=== PATIENT | female | born 1950 | race Caucasian/White ===

== ENCOUNTER → 2020-03-05 15:08 | Outpatient (BNVA) | payer MEDICARE, OTHER, SELFPAY | PROVIDERS: Family Provider Internal Medicine; Visit Provider Nurse Practitioner Family | DX: Z20.828 Contact with and (suspected) exposure to other viral communicable diseases (principal); J06.9 Acute upper respiratory infection, unspecified | CPT/HCPCS: 87635 ==

== ENCOUNTER → 2020-05-12 18:07 | Outpatient (BNVA) | payer MEDICARE, OTHER, SELFPAY | PROVIDERS: Family Provider Internal Medicine; Visit Provider Nurse Practitioner | DX: S52.132A Displaced fracture of neck of left radius, initial encounter for closed fracture (principal); W19.XXXA Unspecified fall, initial encounter; M25.522 Pain in left elbow | CPT/HCPCS: 73080; 73090 ==

== ENCOUNTER → 2020-05-29 16:01 | Outpatient (BNVA) | payer MEDICARE, OTHER, SELFPAY | PROVIDERS: Family Provider Internal Medicine; PCP Internal Medicine; Visit Provider Orthopaedic Surgery | DX: S52.122D Displaced fracture of head of left radius, subsequent encounter for closed fracture with routine healing (principal); M65.312 Trigger thumb, left thumb; W01.0XXD Fall on same level from slipping, tripping and stumbling without subsequent striking against object, subsequent encounter | CPT/HCPCS: 73080 ==

== ENCOUNTER → 2020-06-19 14:10 | Outpatient (BNVA) | payer MEDICARE, OTHER, SELFPAY | PROVIDERS: Family Provider Internal Medicine; PCP Internal Medicine; Visit Provider Orthopaedic Surgery | DX: S52.122D Displaced fracture of head of left radius, subsequent encounter for closed fracture with routine healing (principal); X58.XXXD Exposure to other specified factors, subsequent encounter | CPT/HCPCS: 73080 ==

== ENCOUNTER → 2020-07-17 14:00 | Outpatient (BNVA) | payer MEDICARE, OTHER, SELFPAY | PROVIDERS: Family Provider Internal Medicine; PCP Internal Medicine; Visit Provider Orthopaedic Surgery | DX: S52.122A Displaced fracture of head of left radius, initial encounter for closed fracture (principal); W01.0XXA Fall on same level from slipping, tripping and stumbling without subsequent striking against object, initial encounter; M65.312 Trigger thumb, left thumb; Z01.812 Encounter for preprocedural laboratory examination; Z20.822 Contact with and (suspected) exposure to COVID-19 | CPT/HCPCS: 73080 ==

== ENCOUNTER → 2020-07-23 15:08 | Outpatient (BNVA) | payer MEDICARE, OTHER, SELFPAY | PROVIDERS: Family Provider Internal Medicine; PCP Internal Medicine; Visit Provider Orthopaedic Surgery | DX: Z01.812 Encounter for preprocedural laboratory examination (principal); Z20.822 Contact with and (suspected) exposure to COVID-19 | CPT/HCPCS: 87635 ==

== ENCOUNTER 2020-07-26 11:38 | Day surgery (SDC) | payer MEDICARE, OTHER, SELFPAY ==
[2020-07-25 14:09] VITALS: BMI 37.9
[2020-07-26] VITALS (9 sets, daily range): BP systolic 141–176; BP diastolic 86–125; PULSE 76–96; RESP 16–18; TEMP 36.2–36.9; O2SAT 92–98
[2020-07-26] MEDS: sodium chloride 0.9% 1,000 ML 30 ML IV (12:00)
--- NOTE | 2020-07-26 12:50 | ANES.PREANE2 ---
Pre-Anesthetic Assessment Pre-Anesthetic Assessment: Height/Weight: Height 1.65 m Weight 103.419 kg Temp Pulse Resp BP Pulse Ox 97.2 F L 96 18 152/125 98 07/26/20 11:57 07/26/20 11:57 07/26/20 11:57 07/26/20 11:57 07/26/20 11:57 Preop Diagnosis: Trigger finger Left thumb Proposed Procedure: Operation Date: 07/26/20 13:05 Proposed Procedures p left thumb trigger finger release 48164 s52.122A(Left) - Mike To MD Familial anesthetic complications: none Was Beta Tomeka taken within 24 hours: N/A Was Clonidine taken within 24 hours: N/A Last intake: Intake Last Liquid Date 07/25/20 Last Liquid Time 23:30 Last Solid Date 07/24/20 Last Solid Time 23:30 Social: Social History: No alcohol and No tobacco Exam: Pre-Anes Outpt Exam: alert, oriented x 3, clear to auscultation bilaterally and regular rate & rhythm Airway: Cervical ROM: WNL MP: 4 Dentition: Full CV/HEM: CV/HEM: HTN Anesthetic Plan: ASA status: 2 Anesthesia: MAC and Regional (specify below) (margie block) Risk of > 500 ml blood loss (7ml/kg in children): No PFSH Anesthesia PFSH: Social History Smoking and tobacco status: never smoked Data Anesthesia Cardiac Studies: No Data to Display
--- NOTE | 2020-07-26 14:24 | W.PM.OPSUD ---
Surgery/Procedure H&P Update DATE OF PROCEDURE: July 26, 2020 DATE H&P PERFORMED: 07/17/20 PREOP DIAGNOSIS: Trigger finger Left thumb PLANNED PROCEDURE: Operation Date: 07/26/20 13:05 Proposed Procedures p left thumb trigger finger release 16925 s52.122A(Left) - Mike To MD
--- NOTE | 2020-07-26 15:04 | PM.OP ---
Operative Report Date of procedure: July 26, 2020 Pre-op Diagnosis: Trigger finger Left thumb Post-op diagnosis: same Post-op Findings: Same same Procedure Done: Left trigger thumb release Surgeon: Mike To Anesthesia: Nerve Block (Naga block) Estimated blood loss (mL): 2 Tourniquet time (min): 21 Findings: No abnormalities were seen in the Lexer tendons at the level of the A1 acosta Disposition: PACU Procedure: The patient's hand was prepped in the usual fashion. A timeout was performed. I transverse incision was made over the level of a 1 acosta in the palm over a distance of approximately a centimeter and a half. Under loupe magnification blunt dissection was accomplished down to the A1 acosta. With adequate visualization a scalpel was used to divide the central 8 mm of that structure. Blunt scissors were then used to extend the release approximately 5 mm proximally and 5 mm distally. Tendons were pulled the road and inspected to assure there health. Skin edges were infiltrated with 4 cc of 0.5%n Marcaine. The skin edges were closed with 3-0 Prolene compressive dressings were applied.
--- NOTE | 2020-07-26 15:24 | ANE.PACU2 ---
Inpatient post-anesthesia follow up: Airway intact: Yes Vital signs: Temperature 98.4 F Pulse Rate 81 Respiratory Rate 18 Blood Pressure 162/88 Pulse Oximetry 93 Oxygen Delivery Me thod Room Air Oxygen Flow Rate Fraction of Inspir ed Oxygen Hydration adequate: Yes Nausea and vomiting: No Pain level: 2 Mental status: Baseline
[2020-07-26] MEDS: oxyCODONE 5 mg IR Tab/Cap PO (15:48)
== END 2020-07-26 16:00 | disposition home or self-care (01) ==
PROVIDERS: PCP Internal Medicine; Visit Provider Orthopaedic Surgery
PROC: (CPT 26055; principal; 2020-07-26 12:55)
DX: M65.312 Trigger thumb, left thumb (principal); I10 Essential (primary) hypertension
CPT/HCPCS: 26055; 96365; J0690; J2250; J2405; J2704; J3010; J3490; J7030

== ENCOUNTER → 2021-01-08 17:32 | Outpatient (BNVA) | payer MEDICARE, OTHER, SELFPAY | PROVIDERS: PCP Internal Medicine; Visit Provider Nurse Practitioner Family | DX: Z20.822 Contact with and (suspected) exposure to COVID-19 (principal); J32.9 Chronic sinusitis, unspecified | CPT/HCPCS: 87635 ==

== ENCOUNTER → 2021-08-27 17:21 | Outpatient (BNVA) | payer MEDICARE, OTHER, SELFPAY | PROVIDERS: PCP Internal Medicine; Visit Provider Nurse Practitioner Family | DX: J32.9 Chronic sinusitis, unspecified (principal); J06.9 Acute upper respiratory infection, unspecified; R05.9 Cough, unspecified; J30.2 Other seasonal allergic rhinitis; Z20.822 Contact with and (suspected) exposure to COVID-19 | CPT/HCPCS: 80053; 87635 ==

== ENCOUNTER → 2021-09-06 10:43 | Outpatient (BNVA) | payer MEDICARE, OTHER, SELFPAY | PROVIDERS: PCP Internal Medicine; Visit Provider Nurse Practitioner Family | DX: J06.9 Acute upper respiratory infection, unspecified (principal); J40 Bronchitis, not specified as acute or chronic; R05.9 Cough, unspecified | CPT/HCPCS: 71046 ==

== ENCOUNTER 2024-04-19 21:40 | Emergency (ER) | payer MEDICARE, OTHER, SELFPAY ==
[2024-04-19] VITALS (7 sets, daily range): BP systolic 109–143; BP diastolic 55–95; PULSE 112–115; RESP 22–37; TEMP 36.3; O2SAT 93–97
--- NOTE | 2024-04-19 21:49 | ECG_ITS ---
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 Measurements Intervals [place] Rate: 112 P: 71 MO: 160 QRS: 5 QRSD: 82 T: 29 QT: 291 QTc: 398 Interpretive Statements SINUS TACHYCARDIA LOW QRS VOLTAGE IN PRECORDIAL LEADS [QRS DEFLECTION < 1.0 mV IN CHEST LEADS] POSSIBLE ANTERIOR MYOCARDIAL INFARCTION , OF INDETERMINATE AGE [30 ms Q WAVE IN V3/V4, OR R < 0.2 mV IN V4] POSSIBLE INFERIOR MYOCARDIAL INFARCTION , PROBABLY OLD [30 ms Q WAVE IN II/aVF] Compared to ECG 05/29/2017 22:55:57 Low QRS voltage now present Myocardial infarct finding now present Sinus rhythm no longer present T-wave abnormality no longer present Electronically Signed On 04-23-2024 23:35:17 BEAM MACHINE OPERATOR by Bob Escobar M.D. [id number]
--- NOTE | 2024-04-19 21:50 | XRR_ITS ---
PROCEDURE INFORMATION: Exam: XR Chest Exam date and time: 04/19/2024 9:53 PM Age: 73 years old Clinical indication: Other: Weakness TECHNIQUE: Imaging protocol: Radiologic exam of the chest. Views: 1 view. COMPARISON: CR XR chest 2V* [id number] 09/06/2021 10:48 AM FINDINGS: Lungs: Unremarkable. No consolidation. Expiratory. Pleural spaces: Unremarkable. No pleural effusion. No pneumothorax. Heart/Mediastinum: Heart borderline in size. Bones/joints: Unremarkable. XR/XR chest 1V portable [id number] IMPRESSION: No acute findings.
--- NOTE | 2024-04-19 21:50 | CTR_ITS ---
PROCEDURE INFORMATION: Exam: CT Head Without Contrast Exam date and time: 04/19/2024 10:05 PM Age: 73 years old Clinical indication: Injury or trauma; Concussion/head injury; Injury details: Fall loc; Additional info: Fall, head injury TECHNIQUE: Imaging protocol: Computed tomography of the head without contrast. Radiation optimization: All CT scans at this facility use at least one of these dose optimization techniques: automated exposure control; mA and/or kV adjustment per patient size (includes targeted exams where dose is matched to clinical indication); or iterative reconstruction. COMPARISON: MRI Neck/Face/Orbit w/wo [id number] 01/28/2019 8:46 AM RADIATION DOSE METRICS: Total DLP (mGy-cm): 1147.78 FINDINGS: Brain: Normal. No hemorrhage. Unremarkable white matter. No mass effect. Cerebral ventricles: No ventriculomegaly. Paranasal sinuses: Visualized sinuses are unremarkable. No fluid levels. Mastoid air cells: Visualized mastoid air cells are well aerated. Bones: Unremarkable. No acute fracture. Soft tissues: Unremarkable. CT/CT head wo con* [id number] IMPRESSION: No acute intracranial abnormality.
--- NOTE | 2024-04-19 22:16 | ED_ITS ---
HPI - Dizziness 2 General: Chief Complaint: Dizziness Stated Complaint: dizzy, fall Time Seen by Provider: 04/19/24 21:47 History of Present Illness: HPI Narrative: 73-year-old female with a history of hyp ertension who presents to the emergency room after having had a syncopal episode.She says she felt dizzy and then passed out. She said she woke up panting . At this point she does not feel short of breath. No known fevers. She says she had a mammogram and a bone density study earlier today. She has had no known fevers. No leg or calf pain. No lower extremity swelling. She says she feels somewhat short of breath still but she is not panting like she was. EMS reports mild hypoxemia on presentation. Here she is satting in the upper 90s on 3 L nasal cannula. She is slightly tachycardic. Labile blood pressures. Related Data Home Medications Medication Instructions Recorded Confirmed lisinopril 10 mg tablet 10 mg PO DAILY 06/19/20 09/06/21 phenylephrine HCl 10 mg tablet 10 mg PO Q6H 08/27/21 09/06/21 (Sudafed PE) gabapentin 100 mg capsule 100 mg PO BID 05/01/22 05/01/22 nortriptyline 25 mg capsule 25 mg PO DAILY 05/01/22 05/01/22 sertraline 100 mg tablet 100 mg PO DAILY 05/01/22 05/01/22 Previous Rx's Medication Instructions Recorded levocetirizine 5 mg tablet (Xyzal) 5 mg PO DAILY #90 tabs 08/27/21 albuterol sulfate 90 mcg/actuation 2 puff inhalation QID PRN 09/06/21 aerosol inhaler (ProAir HFA) shortness of breath or wheezing #8.5 grams budesonide-formoterol HFA 160 2 puff inhalation Q12H #10.2 grams 09/06/21 mcg-4.5 mcg/actuation aerosol inhaler (Symbicort) levofloxacin 750 mg tablet 750 mg PO DAILY 5 days #5 tabs 05/01/22 promethazine-DM 6.25 mg-15 mg/5 mL 5 ml PO Q6H PRN cough #160 mL 05/01/22 oral syrup Allergies Allergy/AdvReac Type Severity Reaction Status Date / Time acetaminophen [From [place]] Allergy hives Verified 04/19/24 21:58 hydrocodone [From [place]] Allergy hives Verified 04/19/24 21:58 Penicillins Allergy rash Verified 04/19/24 21:58 Review of Systems 2 Narrative: Constitutional symptoms: Negative except as documented in HPI. Skin symptoms: Negative except as documented in HPI. Eye symptoms: Negative except as documented in HPI. ENMT symptoms: Negative except as documented in HPI. Respiratory symptoms: Negative except as documented in HPI. Cardiovascular symptoms: Negative except as documented in HPI. Gastrointestinal symptoms: Negative except as documented in HPI. Genitourinary symptoms: Negative except as documented in HPI. Musculoskeletal symptoms: Negative except as documented in HPI. Neurologic symptoms: Negative except as documented in HPI. Psychiatric symptoms: Negative except as documented in HPI. Endocrine symptoms: Negative except as documented in HPI. . PFSH ED 2 PFSH: Social History Smoking and tobacco/nicotine status: never used tobacco/nicotine Physical Exam 2 Narrative: EXAM NARRATIVE: General: Alert, no acute distress. Skin: Warm, dry. Head: Normocephalic, atraumatic. Neck: Supple, trachea midline. Eye: Extraocular movements are intact. Ears, nose, mouth and throat: mucosa moist. Cardiovascular: Regular, tachycardic, normal peripheral perfusion. Respiratory: Lungs are clear to auscultation, respirations are non-labored, breath sounds are equal, Symmetrical chest wall expansion. Gastrointestinal: Soft, Nontender, Non distended Musculoskeletal: Normal ROM, no deformity. Neurological: Alert and oriented, No focal neurological deficit observed. Psychiatric: Cooperative, appropriate mood & affect. Course 2 Vital Signs: Vital signs: Vital Signs Temperature 97.4 F L 04/19/24 21:54 Pulse Rate 112 H 04/19/24 21:54 Respiratory Rate 22 H 04/19/24 21:54 Blood Pressure 109/55 04/19/24 21:54 Pulse Oximetry 97 04/19/24 21:54 Oxygen Delivery Me thod Nasal Cannula 04/19/24 21:54 Oxygen Flow Rate 3 04/19/24 21:54 MDM - Dizziness Medical Decision Making Medical decision making: Differential diagnosis including but not limited to and based on the above HPI, review of systems and physical exam in this patient with syncope: Vasovagal, orthostatics hypotension, cardiac dysrhythmia, myocardial infarction, infection and hypotension, Orders placed to evaluate differential diagnosis based on the above differential, HPI and physical exam EKG: Time 2148. Rate 112. Sinus tachycardia, No ST-T changes, no ectopy, normal MO & QRS intervals, This was reviewed and interpreted by myself the ER physician at 2154 CT head: No acute intracranial process. no intracranial hemorrhage, no evidence of infarct. no evidence of acute fracture.This was reviewed and interpreted by myself the ER physician. Chest x-ray: No acute process. No infiltrate. No pneumothorax. This was reviewed and interpreted by myself the emergency room physician. I also reviewed the radiology report. Lab Review: Laboratory results were reviewed and interpreted by myself the emergency room physician. No leukocytosis. No anemia. Platelets are slightly low at 124. BUN and creatinine are relatively normal at 22 and 0.9. Slight elevation in her liver enzymes. proBNP is quite elevated and she has no history of congestive heart failure and her heart size is normal on chest x-ray. This is all very suspicious of PE. CTA was ordered. CTA of the chest with PE protocol: Saddle pulmonary emboli with heavy bilateral burden. Effacement of the left ventricle. Right heart strain. This was reviewed and interpreted by myself the emergency room physician. I also reviewed the radiology report. I also spoke with the radiologist on-call about this. He was quite concerned. I reviewed the patient's medical record. Reexamination: Patient still slightly tachycardic. Heart rate around 115. Currently mild tachypnea but no real increased work of breathing. Still some minimal oxygen requirements. Overall she does not appear in as much distress as her CTA might indicate she could be. Patient requires transfer to a tertiary care center for possible embolectomy. She has severe right heart strain and effacement of the left ventricle. This requires emergent intervention likely. Patient has been accepted to [facility] in [place]. Assessment and plan: Saddle pulmonary embolism Cor pulmonale Syncope Hypoxemia ?Heparin bolus and heparin drip. Coags been ordered. -I discussed the patient with the hospitalist on-call who is admitting the patient. - Discussed findings and plan with patient. Answered any questions. - All laboratory values were reviewed and interpreted personally by myself, the ER physician - All imaging was reviewed and interpreted personally by myself, the ER physician. - Evaluation and treatment of this problem were appropriate in the emergency setting Critical care -I spent a total of >35 minutes of critical care time managing the patient, independent of any other practitioner. -The time involved in the performance of separately reportable procedures was not counted towards critical care time. Lab Data 04/19/24 22:18 04/19/24 22:18 Radiology Impressions Chest X-Ray 04/19/24 21:50 IMPRESSION: No acute findings. Head CT 04/19/24 21:50 IMPRESSION: No acute intracranial abnormality. Chest CTA 04/20/24 00:00 IMPRESSION: Acute pulmonary embolism with large clot burden and severe effacement of the left ventricle. Findings called to Dr. Loco 11:22 p.m. flushing Standard time. Laboratory Results WBC 8.56 10^3/uL (3.29-11.43) 04/19/24 22:18 RBC 4.30 10^6/uL (3.85-5.65) 04/19/24 22:18 Hgb 12.60 g/dL (11.27-16.99) 04/19/24 22:18 Hct 39.3 % (36-47) 04/19/24 22:18 MCV 91.4 fl (85-98) 04/19/24 22:18 MCH 29.3 pg (27-33) 04/19/24 22:18 MCHC 32.1 g/dL (30-55) 04/19/24 22:18 RDW 13.7 % (12.1-15.1) 04/19/24 22:18 Plt Count 124 10^3/cmm (157-399) L 04/19/24 22:18 MPV 10.1 fL (7.4-10.4) 04/19/24 22:18 Neut % (Auto) 79.6 % 04/19/24 22:18 Lymph % (Auto) 14.3 % 04/19/24 22:18 [place] % (Auto) 4.8 % 04/19/24 22:18 Eos % (Auto) 0.4 % 04/19/24 22:18 Baso % (Auto) 0.4 % 04/19/24 22:18 Neut # (Auto) 6.83 10^3/uL (1.8-7.7) 04/19/24 22:18 Lymph # (Auto) 1.2 10^3/uL (0.8-4.8) 04/19/24 22:18 [place] # (Auto) 0.4 10^3/uL (0.2-0.9) 04/19/24 22:18 Eos # (Auto) 0.0 10^3/uL (0.0-0.8) 04/19/24 22:18 Baso # (Auto) 0.0 10^3/uL (0.0-0.1) 04/19/24 22:18 Nucleated RBC % (auto) 0 % 04/19/24 22: Nucleated RBCs # 0.0 /100WBC 04/19/24 22:18 Specimen Type Arterial 04/19/24: Sample Site Brachial, right 04/19/24: ABG pH 7.46 (7.35-7.45) H 04/19/24: ABG pCO2 33.9 mmHg (35-45) L 04/19/24: ABG pO2 79.7 mmHg (80.0-100.0) L 04/19/24: ABG HCO3 24.1 mmol/L (22-26) 04/19/24: ABG O2 Saturation 96.1 04/19/24: ABG Base Excess 0.8 mmol/L (-2.0-2.0) 04/19/24 22: Reed Test N/a 04/19/24: A-a O2 Gradient 3.8 mmHg (5-10) L 04/19/24: Hematocrit 41.1 % (37-47) 04/19/24: Hgb O2 Saturation 94.4 % (95-100) L 04/19/24: Carboxyhemoglobin 0.7 %THgb (0.4-20.1) 04/19/24: Methemoglobin 1.0 % (0.4-1.5) 04/19/24: Total Hemoglobin 13.4 g/dL (12-16) 04/19/24: Sodium 141.0 mmol/L (131-143) 04/19/24: Potassium 4.1 mmol/L (3.5-5.0) 01/21/25 22:28 Glucose 133.0 mg/dL (70-115) H 04/19/24 22:28 Ionized Calcium 1.2 mmol/L (1.1-1.4) 04/19/24 22:28 O2 Delivery Device Nc 04/19/24 22:28 O2 Liters/Min 4.0 % 04/19/24 22:28 Traffic Recorder ID [email or web address] 04/19/24 22:28 Sodium 140 mmol/L (136-145) 04/19/24 22:18 Potassium 4.3 mmol/L (3.5-5.1) 04/19/24 22:18 Chloride 103 mmol/L (98-107) 04/19/24 22:18 Carbon Dioxide 26 mmol/L (22-29) 04/19/24 22:18 Anion Gap 15.3 (5-19) 04/19/24 22:18 BUN 22 mg/dL (8-23) 04/19/24 22:18 Creatinine 0.9 mg/dL (0.5-0.9) 04/19/24 22:18 GFR Calculation Not Reportable 04/19/24 22:18 Glucose 131 mg/dL (65-115) H 04/19/24 22:18 Calculated Osmolality 295 mOsm/kg (285-295) 04/19/24 22:18 Lactic Acid 1.7 mmol/L (0.5-2.2) 04/19/24 22:18 Calcium 8.8 mg/dL (8.5-10.5) 04/19/24 22:18 Total Bilirubin 0.5 mg/dL (0.15-1.2) 04/19/24 22:18 AST 70 U/L (0-32) H 04/19/24 22:18 ALT 77 U/L (0-33) H 04/19/24 22:18 Alkaline Phosphatase 83 U/L (35-105) 04/19/24 22:18 Troponin T Baseline 73 ng/L (0-10) H 04/19/24 22:18 C-Reactive Protein 36.4 mg/L (0.0-4.9) H 04/19/24 22:18 NT-Pro-B Natriuret Pep 2531 pg/mL (0-125) H 04/19/24 22:18 Total Protein 5.8 g/dL (6.6-8.7) L 04/19/24 22:18 Albumin 3.7 g/dL (3.5-5.2) 04/19/24 22:18 Globulin 2.1 g/dL (1.3-4.6) 04/19/24 22:18 Urine Color Yellow (Yellow) 04/19/24 22:55 Urine Appearance Clear (CLEAR) 04/19/24 22: Urine pH 6.0 (5-7) 04/19/24 22:55 Ur Specific [place] 1.006 (1.005-1.030) 04/19/24 22:55 Urine Protein Negative (Negative) 04/19/24 22:55 Urine Glucose (UA) Negative (Normal) 04/19/24 22: Urine Ketones Negative (Negative) 04/19/24 22: Urine Blood Negative (Negative) 04/19/24 22: Urine Nitrate Negative (Negative) 04/19/24 22:55 Urine Bilirubin Negative (Negative) 04/19/24 22: Urine Urobilinogen 0.2 mg/dL (Negative) 04/19/24 22:55 Ur Leukocyte Esterase Negative (Negative) 04/19/24 22:55 Urine RBC 0-2 /hpf (0-2) 04/19/24 22:55 Urine WBC 0-5 /hpf (0-5) 04/19/24 22:55 Ur Squamous Epith Cells 0-5 /hpf (0-5) 04/19/24 22:55 Amorphous Sediment Not Reportable 04/19/24 22:55 Urine Bacteria None seen /hpf (NONE) 04/19/24 22:55 Hyaline Casts 0.40 /lpf 04/19/24 22:55 Adenovirus (PCR) Not detected (NOT DETECT) 04/19/24 22: C. pneumoniae DNA (PCR) Not detected (NOT DETECT) 04/19/24 22:21 Coronavirus 229E (PCR) Not detected (NOT DETECT) 04/19/24 22: Human Metapneumovir PCR Not detected (NOT DETECT) 04/19/24 22:21 Influenza A (H1) PCR Not detected (NOT DETECT) 04/19/24 22:21 Influ A (H1/09) PCR Not detected (NOT DETECT) 04/19/24 22: Influenza A (H3) PCR Not detected (NOT DETECT) 04/19/24 22:21 Influenza Type A (PCR) Not detected (NOT DETECT) 04/19/24 22:21 Influenza Type B (PCR) Not detected (NOT DETECT) 04/19/24 22:21 M. pneumoniae (PCR) Not detected (NOT DETECT) 04/19/24 22:21 Parainfluenza 1 (PCR) Not detected (NOT DETECT) 04/19/24 22:21 Parainfluenza 2 (PCR) Not detected (NOT DETECT) 04/19/24 22:21 Parainfluenza 3 (PCR) Not detected (NOT DETECT) 04/19/24 22:21 Parainfluenza 4 (PCR) Not detected (NOT DETECT) 04/19/24 22:21 RSV Type A (PCR) Not detected (NOT DETECT) 04/19/24 22:21 RSV Type B (PCR) Not detected (NOT DETECT) 04/19/24 22:21 Entero/Rhino (PCR) Not detected (NOT DETECT) 04/19/24 22:21 SARS-CoV-2 (PCR) Not detected (NOT DETECT) 04/19/24 22:21 All radiology interpretation(s) finalized by discharge Discharge Plan Discharge Patient Disposition: Xfer Short-Term Hosp Clinical Impression: Pulmonary embolism, Acute cor pulmonale due to saddle embolus of pulmonary artery, Syncope, Hypoxemia Condition: Stable Referrals: Ashley Mendes MD [Primary Care Provider] - Coding Level of Care Code ED Mold Carrier for Jonas Jones
[2024-04-19 22:39] LABS: ABG PCO2 33.9 mmHg (35-45); ABG PH Result 7.46 (7.35-7.45); Alveolar-Arterial Oxygen Gradi 3.8 mmHg (5-10); Arterial Blood Gas Hematocrit 41.1 % (37-47); Base Excess ABG 0.8 mmol/L (-2.0-2.0); Blood Gas Sample Site Brachial, right; Blood Gas Sample Type Arterial; Carboxyhemoglobin 0.7 %THgb (0.4-20.1); HCO3 ABG 24.1 mmol/L (22-26); HGB O2 Sat 94.4 % (95-100); Ionized Calcium Level - ABG 1.2 mmol/L (1.1-1.4); Oxygen Device NC; Oxygen Saturation ABG 96.1; PO2 ABG 79.7 mmHg (80.0-100.0); Potassium Level - ABG 4.1 mmol/L (3.5-5.0); Total Hemoglobin 13.4 g/dL (12-16)
[2024-04-19 22:42] LABS: Basophils % 0.4 %; Eosinophils % 0.4 %; Hematocrit 39.3 % (36-47); Lymphocytes # 1.2 10^3/uL (0.8-4.8); Lymphocytes % 14.3 %; Mean Corpuscular HGB Conc 32.1 g/dL (30-55); Mean Corpuscular Hemoglobin 29.3 pg (27-33); Mean Corpuscular Volume 91.4 fl (85-98); Mean Platelet Volume 10.1 fL (7.4-10.4); Monocytes # 0.4 10^3/uL (0.2-0.9); Monocytes % 4.8 %; Neutrophils # 6.83 10^3/uL (1.8-7.7); Neutrophils % 79.6 %; Nucleated Red Blood Cells % 0 %; Platelet Count 124 10^3/cmm (157-399); Red Cell Distribution Width 13.7 % (12.1-15.1); White Blood Count 8.56 10^3/uL (3.29-11.43)
[2024-04-19 22:54] LABS: Lactic Sepsis W/Reflex 1.7 mmol/L (0.5-2.2)
[2024-04-19 22:55] LABS: Troponin(5th) Baseline 73 ng/L (0-10)
[2024-04-19 23:03] LABS: Bilirubin Urine Negative (Negative); Blood Urine Negative (Negative); Glucose Urine UA Negative (Normal); Ketones Urine Negative (Negative); Leukocyte Esterase Urine Negative (Negative); Nitrate Urine Negative (Negative); Protein Urine Negative (Negative); Specific Gravity, Urine 1.006 (1.005-1.030); Urine Appearance Clear (CLEAR); Urine Color Yellow (Yellow); Urobilinogen Urine 0.2 mg/dL (Negative)
[2024-04-19 23:05] LABS: Alanine Aminotransferase 77 U/L (0-33); Albumin Level 3.7 g/dL (3.5-5.2); Alkaline Phosphatase 83 U/L (35-105); Anion Gap 15.3 (5-19); Aspartate Amino Transferase 70 U/L (0-32); Blood Urea Nitrogen 22 mg/dL (8-23); C Reactive Protein 36.4 mg/L (0.0-4.9); Calcium 8.8 mg/dL (8.5-10.5); Carbon Dioxide 26 mmol/L (22-29); Chloride 103 mmol/L (98-107); Globulin 2.1 g/dL (1.3-4.6); Glucose 131 mg/dL (65-115); NT Pro B Type Natriuretic Pept 2531 pg/mL (0-125); Osmolality Calculated 295 mOsm/kg (285-295); Potassium 4.3 mmol/L (3.5-5.1); Sodium 140 mmol/L (136-145); Total Bilirubin 0.5 mg/dL (0.15-1.2); Total Protein 5.8 g/dL (6.6-8.7)
[2024-04-19 23:06] LABS: Bacteria Urine None Seen /hpf; RBC Urine 0-2 /hpf (0-2); Squamous Epithelial Cell Urine 0-5 /hpf (0-5); WBC Urine 0-5 /hpf (0-5)
--- NOTE | 2024-04-19 23:08 | ECG_ITS ---
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 Measurements Intervals [place] Rate: 112 P: 64 IN: 159 QRS: 0 QRSD: 89 T: 26 QT: 318 QTc: 435 Interpretive Statements SINUS TACHYCARDIA LOW QRS VOLTAGE IN PRECORDIAL LEADS [QRS DEFLECTION < 1.0 mV IN CHEST LEADS] PROBABLE INFERIOR MYOCARDIAL INFARCTION , PROBABLY OLD [35 ms Q WAVE IN II/aVF] Compared to ECG 05/29/2017 22:55:57 Low QRS voltage now present Myocardial infarct finding now present Sinus rhythm no longer present T-wave abnormality no longer present Electronically Signed On 04-23-2024 23:15:54 DIAGNOSTICS TECH by Bob Escobar M.D. [email or web address]
[2024-04-19] MEDS: sodium chloride 0.9% 1,000 ML 999 ML IV (23:14)
[2024-04-20] VITALS (10 sets, daily range): BP systolic 135–159; BP diastolic 90–117; PULSE 103–115; RESP 21–39; O2SAT 93–97
--- NOTE | 2024-04-20 | CTR_ITS ---
PROCEDURE INFORMATION: Exam: CTA Chest With Contrast Exam date and time: 04/20/2024 12:03 AM Age: 73 years old Clinical indication: Dyspnea; Additional info: Hypoxemia, tachycardia TECHNIQUE: Imaging protocol: Computed tomographic angiography of the chest with contrast. Exam focused on the arteries. 3D rendering (Not supervised by radiologist): MIP and/or 3D reconstructed images were created by the technologist. Radiation optimization: All CT scans at this facility use at least one of these dose optimization techniques: automated exposure control; mA and/or kV adjustment per patient size (includes targeted exams where dose is matched to clinical indication); or iterative reconstruction. Contrast material: OMNI 350; Contrast volume: 100 ml; Contrast route: INTRAVENOUS (IV); COMPARISON: CR (CHEST, ) 04/19/2024 9:53 PM RADIATION DOSE METRICS: Total DLP (mGy-cm): 462.91 FINDINGS: Pulmonary arteries: Extensive bilateral pulmonary embolism with emboli in the bilateral main pulmonary arteries as well as saddle embolus. There is severe attenuation of the left ventricle. Heart RV/LV ratio: 2.9. Tiny foci of ground-glass opacity right lung base which could represent a small focus of pulmonary infarction. Aorta: Unremarkable. No aortic aneurysm. No aortic dissection. Pleural spaces: Unremarkable. No pneumothorax. No pleural effusion. Lymph nodes: Unremarkable. No enlarged lymph nodes. Bones/joints: Unremarkable. No acute fracture. Soft tissues: Unremarkable. CT/CT angio chest PE protcl [id number] IMPRESSION: Acute pulmonary embolism with large clot burden and severe effacement of the left ventricle. Findings called to Dr. Loco 11:22 p.m. ferdinand Standard time.
[2024-04-20] MEDS: iohexol 350 mg/mL 500 mL Btl (per mL) IV (00:05)
[2024-04-20 00:26] LABS: Adenovirus Not Detected (NOT DETECT); Chlamydia Pneumoniae Not Detected (NOT DETECT); Coronavirus 229E,HKU1,NL63,OC4 Not Detected (NOT DETECT); Human Metapneumovirus Not Detected (NOT DETECT); Human Rhinovirus/Enterovirus Not Detected (NOT DETECT); Influenza A Not Detected (NOT DETECT); Influenza A H1 Not Detected (NOT DETECT); Influenza A H1-2009 Not Detected (NOT DETECT); Influenza A H3 Not Detected (NOT DETECT); Influenza B Not Detected (NOT DETECT); Mycoplasma Pneumoniae Not Detected (NOT DETECT); Parainfluenza Virus Type 1 Not Detected (NOT DETECT); Parainfluenza Virus Type 2 Not Detected (NOT DETECT); Parainfluenza Virus Type 3 Not Detected (NOT DETECT); Parainfluenza Virus Type 4 Not Detected (NOT DETECT); Respiratory Syncytial Virus A Not Detected (NOT DETECT); Respiratory Syncytial Virus B Not Detected (NOT DETECT); SARS-COV-2 Not Detected (NOT DETECT)
[2024-04-20] MEDS: heparin drip 25,000 UNIT/500 ML PREMIX 26.45 UNIT IV (00:47)
[2024-04-20 00:48] LABS: INR 0.99 (0.8-1.2)
[2024-04-20] MEDS: heparin 5,000 unit/mL INJ 1 mL 4000 UNIT IVP (00:52)
[2024-04-20 01:03] LABS: Troponin 5 2HR 102.1 ng/L (0-10); Troponin 5 2HR Delta 29.1 ABS# (0-10)
[2024-04-20 01:05] LABS: D Dimer >= 20.00 ug/mLFEU (0-0.59)
== END 2024-04-20 02:05 | disposition short-term general hospital (02) ==
PROVIDERS: Emergency Provider Emergency Medicine; PCP Family Medicine
DX: I26.02 Saddle embolus of pulmonary artery with acute cor pulmonale (principal); R09.02 Hypoxemia; R55 Syncope and collapse; Z11.52 Encounter for screening for COVID-19
CPT/HCPCS: 36415; 36600; 51702; 70450; 71045; 71275; 80051; 80053; 81001; 82330; 82805; 83605; 83880; 84484; 85025; 85378; 85610; 85730; 86140; 87040; 87486; 87581; 87633; 93005; 96361; 96374; 99285; J1644; J7030